=== PATIENT | female | born 2000 | race Two or more races ===

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

== ENCOUNTER 2018-04-16 22:29 | Emergency (ER) | payer SELFPAY ==
[~2018-04-16] VITALS: Ht 157.5 cm; Wt 93.0 kg
[~2018-04-16 22:29] MED LIST: NORCO 5-325 TA1 EACH ORAL
[2018-04-16] MEDS ORDERED: NKM (22:51)
[2018-04-16 23:00] VITALS: BP 117/73
[2018-04-16] MEDS ORDERED: IBUPROFEN600 MG ORAL (23:52)
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
[2018-04-17 00:17] VITALS: BP 121/73
[2018-04-17 00:18] VITALS: BP 117/73
--- NOTE | 2018-04-17 12:49 | Diagnostic Imaging Report ---
Indication: Pain status post injury Technique: XRAY Shoulder Compl L Comparison: None FINDINGS/IMPRESSION: No acute fracture or dislocation. Imaged left lung clear. No radiopaque foreign body identified.
--- NOTE | 2018-04-17 12:50 | Diagnostic Imaging Report ---
Indication: Pain status post injury Technique: XRAY C Spine 2-3v Comparison: None Findings: No abnormal cervical curvature noted on frontal view. Cervical lordosis is maintained. Vertebral body heights and disc spaces maintained. No evidence of acute fracture. Anterior and lateral atlantodental intervals within normal limits. No evidence of dens fracture on open mouth views. No prevertebral soft tissue abnormality identified. Imaged portions of the lung apices, mastoid air cells and paranasal sinuses grossly clear. Impression: No evidence of acute fracture or traumatic malalignment.
== END 2018-04-17 00:33 | disposition home or self-care (01) ==
LOC: EMR 04-17 00:19
DX: S16.1XXA Strain of muscle, fascia and tendon at neck level, initial encounter (principal); S40.011A Contusion of right shoulder, initial encounter; S80.01XA Contusion of right knee, initial encounter; V43.52XA Car driver injured in collision with other type car in traffic accident, initial encounter; Y92.410 Unspecified street and highway as the place of occurrence of the external cause
CPT/HCPCS: 72040; 99284